=== PATIENT | male | born 1980 | race Caucasian/White ===

== ENCOUNTER 2018-10-27 09:43 | Day surgery (SDC) | payer BC ==
[2018-10-27 11:36] LABS: ADD MAN DIFF? NO
[2018-10-27 11:41] LABS: BASOPHILS % 0.4 % (0.0-2.0); EOSINOPHILS # 0.1 10^3/ul (0.0-0.5); EOSINOPHILS % 1.5 % (0.0-7.0); HEMOGLOBIN 14.1 g/dl (14.0-18.0); LYMPHOCYTES # 2.4 10^3/ul (0.8-2.9); LYMPHOCYTES % 33.2 % (15.0-51.0); MEAN CORPUSCULAR HEMOGLOBIN 27.4 pg (29.0-33.0); MEAN CORPUSCULAR VOLUME 85.6 fl (82.0-101.0); MEAN PLATELET VOLUME 11.6 fl (7.4-10.4); MONOCYTE # 0.8 10^3/ul (0.3-0.9); MONOCYTES % 10.2 % (0.0-11.0); NEUTROPHILS % 54.4 % (39.0-77.0); PLATELET COUNT 234 10^3/UL (140-415); RED BLOOD COUNT 5.14 10^6/ul (4.70-6.10); RED CELL DISTRIBUTION WIDTH 12.9 % (11.5-14.5)
[2018-10-27 11:41] LABS: WHITE BLOOD COUNT 7.3 10^3/ul (4.8-10.8)
[2018-10-27 12:00] LABS: INR 0.96; PROTIME 12.9 Sec (11.9-14.9)
[2018-10-27 12:01] LABS: PARTIAL THROMBOPLASTIN TIME 29.7 Sec (23.0-35.0)
[2018-10-27 12:04] LABS: ANION GAP 9 (5-13); BLOOD UREA NITROGEN 20 mg/dl (7-20); CALCIUM 10.2 mg/dl (8.4-10.2); CARBON DIOXIDE 26 mmol/L (21-31); CHLORIDE 106 mmol/L (97-110); CREATININE 0.73 mg/dl (0.61-1.24); Estimated GFR > 60 mL/min (>60); GLUCOSE 101 mg/dl (70-220); POTASSIUM 4.5 mmol/L (3.5-5.1); SODIUM 141 mmol/L (135-144)
[2018-10-27] MEDS ORDERED: LIDOCAINE 1% (MDV) 20 ML INJ (13:52)
[2018-10-27] MEDS ORDERED: IODIXANOL LOCM 100 ML BTL (13:52)
[2018-10-27] MEDS ORDERED: HEPARIN 1000 UNITS/ML 10 ML INJ (13:58)
[2018-10-27] MEDS ORDERED: FENTAnyl 50 MCG/ML VIAL (13:59)
[2018-10-27] MEDS ORDERED: MIDAZOLAM 1 MG/ML 2 ML INJ (13:59)
[2018-10-27] MEDS ORDERED: NITROGLYCERIN (IC) 100 MCG/ML INJ (13:59)
[2018-10-27] MEDS ORDERED: VERAPAMIL 5 MG INJ (14:18)
[2018-10-27] MEDS ORDERED: ACETAMINOPHEN 325 MG TAB PO (15:00)
[2018-10-27] MEDS ORDERED: SOD CHLORIDE 0.9% 1,000 ML IV (15:00)
[2018-10-27] MEDS: SOD CHLORIDE 0.9% 1,000 ML IV (15:15)
== END 2018-10-27 18:26 | disposition home or self-care (01) ==
LOC: SDS 09:43
DX: I25.10 Atherosclerotic heart disease of native coronary artery without angina pectoris (principal); I10 Essential (primary) hypertension; E78.5 Hyperlipidemia, unspecified; I25.2 Old myocardial infarction
CPT/HCPCS: 80048; 85025; 85610; 85730; 93005; 93458